=== PATIENT | male | born 1985 | race Two or more races ===

== ENCOUNTER 2023-12-06 20:13 | Inpatient (IN) | payer OTHER ==
[2023-12-06 20:34] VITALS: BMI 25.8
[2023-12-06] MEDS ORDERED: NALOXONE HCL (KLOXXADO) 8 MG SPRAY NS PRN (22:14)
[2023-12-06] MEDS ORDERED: LOPERAMIDE HCL 2 MG CAPSULE PO PRN (22:14)
[2023-12-06] MEDS ORDERED: POLYETHYLENE GLYCOL (HEALTHYLAX) 3350 17 GM PACKET PO PRN (22:14)
[2023-12-06] MEDS ORDERED: NALOXONE HCL 0.4 MG/ML VIAL IM PRN (22:14)
[2023-12-06] MEDS ORDERED: BENZONATATE 200 MG CAPSULE PO PRN (22:14)
[2023-12-06] MEDS ORDERED: DICYCLOMINE HCL 10 MG CAPSULE PO PRN (22:14)
[2023-12-06] MEDS ORDERED: BISMUTH SUBSALICYLATE 524 MG/30 ML PO PRN (22:14)
[2023-12-06] MEDS ORDERED: ONDANSETRON *ODT* 4 MG TABLET SL PRN (22:14)
[2023-12-06] MEDS ORDERED: guaiFENesin 600 MG TABLET.ER (FP) PO PRN (22:14)
[2023-12-06] MEDS ORDERED: IBUPROFEN 400 MG TABLET (FP) PO PRN (22:14)
[2023-12-06] MEDS ORDERED: MAG HYDROX/AL HYDROX/SIMETH 30 ML UNIT-DOSE CUP PO PRN (22:14)
[2023-12-06] MEDS ORDERED: MAGNESIUM HYDROX 2400MG/30ML ORAL SUSPENSION 30 ML CUP PO PRN (22:14)
[2023-12-06] MEDS ORDERED: BENZOCAINE/MENTHOL (CHLORASEPTIC ) LOZENGE MM PRN (22:14)
[2023-12-06] MEDS: NICOTINE POLACRILEX 2 MG GUM BUC PRN (23:34)
[2023-12-07] MEDS ORDERED: chlordiazePOXIDE HCL 25 MG CAPSULE PO PRN (10:13)
[2023-12-07] MEDS: NICOTINE 21 MG/24 HOURS TOPICAL PATCH TD SCH (10:18)
[2023-12-07] MEDS: PRENATAL VITAMINS W/ FOLIC ACID TABLET (FP) PO SCH (10:18)
[2023-12-07] MEDS: chlordiazePOXIDE HCL 25 MG CAPSULE PO SCH (10:35)
[2023-12-07 11:33] LABS: CHLORIDE 110 mmol/L (98-107); POTASSIUM 4.2 mmol/L (3.5-5.1); SODIUM 140 mmol/L (136-145)
[2023-12-07 11:35] LABS: HEMATOCRIT 40.2 % (35.4-49); HEMOGLOBIN 13.6 GM/dL (11.7-16.9); MCH 30.1 pg (25.7-33.7); MCHC 33.9 g/dl (32.0-35.9); MEAN CELL VOLUME 88.7 fl (80-96); MEAN PLT VOLUME 9.6 fl (7.5-11.1); PLATELET COUNT 214 10^3/uL (134-434); RBC 4.53 M/mm3 (4.00-5.60); RDW 13.3 % (11.9-15.9); WHITE BLOOD COUNT 4.2 K/mm3 (4.0-10.0)
[2023-12-07 11:37] LABS: ALBUMIN 2.8 g/dl (3.4-5.0); ANION GAP 3 mmol/L (4-13); BLOOD UREA NITROGEN 15.5 mg/dL (7-18); CALCIUM 8.4 mg/dL (8.5-10.1); CO2 27 mmol/L (21-32); GLUCOSE,RANDOM 99 mg/dL (74-106)
[2023-12-07 11:40] LABS: CREATININE 0.6 mg/dL (0.55-1.3); SGOT/AST 22 U/L (15-37); SGPT/ALT 38 U/L (13-61)
[2023-12-07 11:41] LABS: BILIRUBIN,TOTAL 0.4 mg/dL (0.2-1); TOT PROT 5.9 g/dl (6.4-8.2)
[2023-12-07 11:43] LABS: ALK PHOS 86 U/L (45-117)
[2023-12-07 12:26] LABS: HIV INTERPRETATION NEGATIVE (NEGATIVE)
[2023-12-07] MEDS: THIAMINE 100 MG TABLET PO SCH (22:06)
[2023-12-07] MEDS: MELATONIN 5 MG TABLETS PO SCH (22:06)
[2023-12-08] MEDS: METHOCARBAMOL 500 MG TABLET PO PRN (05:30)
[2023-12-08] MEDS: IBUPROFEN 600 MG TABLET (FP) PO PRN (05:30)
[2023-12-08 08:53] VITALS: RESP 18
[2023-12-08] MEDS: ACETAMINOPHEN 325 MG TABLET (FP) PO PRN (10:13)
[2023-12-08] MEDS: hydrOXYzine PAMOATE 25 MG CAPSULE (FP) PO PRN (13:17)
[2023-12-08 13:20] VITALS: BP 125/67; PULSE 68; TEMP 97.6
[2023-12-09] MEDS ORDERED: chlordiazePOXIDE HCL 25 MG CAPSULE PO SCH (05:00)
[2023-12-10] MEDS ORDERED: chlordiazePOXIDE HCL 10 MG CAPSULE PO PRN
[2023-12-10] MEDS ORDERED: chlordiazePOXIDE HCL 10 MG CAPSULE PO SCH (05:00)
[2023-12-11] MEDS ORDERED: chlordiazePOXIDE HCL 10 MG CAPSULE PO SCH (05:00)
[2023-12-12] MEDS ORDERED: chlordiazePOXIDE HCL 10 MG CAPSULE PO ONE (05:00)
== END 2023-12-08 14:02 | disposition left against medical advice (07) | DRG 770 ==
LOC: YASAS 20:13 → Y3N 22:35
PROVIDERS: ADMIT Allergy & Immunology; ATTEND Surgery
PROC: HZ2ZZZZ Detoxification Services for Substance Abuse Treatment (ICD-10-PCS; principal; 2023-12-06)
DX: F10.230 Alcohol dependence with withdrawal, uncomplicated (principal); F14.20 Cocaine dependence, uncomplicated; F12.20 Cannabis dependence, uncomplicated; Z56.0 Unemployment, unspecified
CPT/HCPCS: 36415; 80053; 80305; 80307; 85027; 86780; 87389; 93005; 93010